=== PATIENT | female | born 1955 | race Caucasian/White ===

== ENCOUNTER 2018-09-07 14:59 | Emergency (ER) | payer BC ==
--- NOTE | 2018-09-07 17:05 | Emergency Department Record ---
History of Present Illness - General Chief complaint: Extremity Problem Stated complaint: RT WRIST PAIN/FALL SKATING Time Seen by Provider: 09/07/18 17:02 Source: Patient Mode of Arrival: Ambulatory Limitations: No limitations - History of Present Illness Initial comments: 63 yo female presents to ED for evaluation of right distal wrist pain and swelling following a fall while roller skating this afternoon with her grand children. Patient reports that she extended her right wrist posteriorly to brace for a fall resulting in injury. Patient denies numbness, tingling, or weakness to the right distal hand, denies health problems at her baseline. MD Complaint: Extremity pain, Extremity swelling Onset/Timin -: Hour(s) Location: Right Radiation: Proximal, Distal Severity scale (1-10): 9 Quality: Aching Improves with: Nothing Worsens with: Other - Related Data Previous Rx's Medication Instructions Recorded Hydrocodone/Acetaminophen [Coy 1 tab PO Q6H PRN #10 tab 09/07/18 5mg/325mg] Allergies Allergy/AdvReac Type Severity Reaction Status Date / Time No Known Drug Allergies Allergy Verified 09/07/18 16:02 Travel Screening - Travel/Exposure Within Last 30 Days Have you traveled within the last 30 days?: No - Travel/Exposure Within Last Year Have you traveled outside the [place] in the last year?: No - Additonal Travel Details Have you been exposed to anyone with a communicable illness?: No - Travel Symptoms Symptom Screening: None Review of Systems Constitutional: Denies: Chills, Fever, Malaise, Night sweats Eyes: Denies: Eye discharge, Eye pain ENT: Denies: Congestion, Ear pain, Epistaxis Respiratory: Denies: Cough, Dyspnea Cardiovascular: Denies: Chest pain, Dyspnea on exertion Endocrine: Denies: Fatigue, Heat or cold intolerance Gastrointestinal: Denies: Abdominal pain, Nausea, Vomiting Genitourinary: Denies: Incontinence, Retention Musculoskeletal: Reports: Arthralgia. Denies: Back pain Skin: Denies: Bruising, Change in color Neurological: Denies: Abnormal gait, Confusion, Headache, Numbness, Tingling, Tremors Psychiatric: Denies: Anxiety Hematological/Lymphatic: Denies: Anemia, Blood Clots Past Medical History - SOCIAL HISTORY Smoking Status: Never smoker Alcohol Use: None Drug Use: None - RESPIRATORY Hx Respiratory Disorders: No - NEURO Hx Neuro Disorders: No - GI Hx GI Disorders: No - Hx Genitourinary Disorders: No - ENDOCRINE Hx Endocrine Disorders: No - MUSCULOSKELETAL Hx Musculoskeletal Disorders: No - PSYCH Hx Psych Problems: No - HEMATOLOGY/ONCOLOGY Hx Hematology/Oncology Disorders: No Family Medical History Any Significant Family History?: No Physical Exam - General General Appearance: Alert, Oriented x3, Cooperative, Moderate distress Limitations: No limitations - Head Head exam: Atraumatic, Normocephalic, Normal inspection Head exam detail: negative: Abrasion, Contusion, Casas's sign, General tenderness, Hematoma, Laceration - Eye Eye exam: Normal appearance. negative: Conjunctival injection, Periorbital swelling, Periorbital tenderness, Scleral icterus - ENT Ear exam: negative: Auricular hematoma, Auricular trauma Nasal Exam: negative: Active bleeding, Discharge, Dried blood, Foreign body Mouth exam: negative: Drooling, Laceration, Muffled voice, Tongue elevation - Neck Neck exam: Normal inspection. negative: Meningismus, Tenderness - Respiratory Respiratory exam: Normal lung sounds bilaterally. negative: Respiratory distress, Rhonchi, Stridor, Wheezes - Cardiovascular Cardiovascular Exam: Regular rate, Normal rhythm, Normal heart sounds - GI/Abdominal GI/Abdominal exam: Soft. negative: Rebound, Rigid, Tenderness - Rectal Rectal exam: Deferred - exam: Deferred - Extremities Extremities exam: Tenderness, Other (TTP to the distal right wrist with STS present, no obvious deformity is present, compartments of the forearm are soft on examination, strong distal radial pulse is present as well. Patient denies pian with movement of the elbow or shoulder. Patient denies other injury on examination.). negative: Calf tenderness, Pedal edema - Back Back exam: Denies: CVA tenderness (R), CVA tenderness (L) - Neurological Neurological exam: Alert, Normal gait, Oriented X3 - Psychiatric Psychiatric exam: Normal affect, Normal mood - Skin Skin exam: Normal color. negative: Abrasion Type of lesion: negative: abrasion Course Vital Signs 09/07/18 15:54 Temperature 98.3 F Pulse Rate 71 Respiratory 16 Rate Blood Pressure 146/113 Pulse Ox 100 - Reevaluation(s) Reevaluation #1: 09/07/18 17:42 Right wrist: Minimally-displaced distal radius fracture without angulation Distal ulna fracture Patient was updated on all results, [facility] Rx for pain as needed Will refer to to Dr. Tracy in the [facility] Specialty clinic for further evaluation in 5-7 days. Disposition Disposition: Discharge Clinical Impression: Distal radius fracture, right Qualifiers: Encounter type: initial encounter Fracture type: closed Fracture morphology: unspecified fracture morphology Qualified Code(s): S52.501A - Unspecified fracture of the lower end of right radius, initial encounter for closed fracture Disposition: Home, Self-Care Condition: (2) Stable Instructions: Wrist Fracture in Adults (ED) Additional Instructions: Return to ED if your symptoms worsen or if you have any concerns. Ibuprofen and Coy as needed for pain. Ice as needed for swelling. Follow-up with Dr. Tracy in the [facility] Specialty clinic in 1 week as directed. Prescriptions: Hydrocodone/Acetaminophen [Coy 5mg/325mg] 1 tab PO Q6H PRN #10 tab PRN Reason: Pain - General Referrals: OLINDA TRACY [DOCTOR OF OSTEOPATH] - [facility] [Provider Group] Forms: Patient Portal Access Time of Disposition: 17:04 Quality - Quality Measures Quality Measures: N/A - Blood Pressure Screening Does Patient Have Any of the Following: No Blood Pressure Classification: Hypertensive Reading Systolic Measurement: 129 Diastolic Measurement: 91 Screening for High Blood Pressure: < First Hypertensive BP, F/U Documented > [ [id number]] First Hypertensive Follow-up Interventions: Referral to alternative/primary care provider.
[2018-09-07] MEDS ORDERED: HYDROCODONE/APAP 5/325MG TABLET PO ONE (17:29)
--- NOTE | 2018-09-07 23:19 | RADIOLOGY REPORT ---
EXAM: FOREARM, RIGHT HISTORY: PAIN. TECHNIQUE: Two views of the right forearm were performed. FINDINGS: There are fracture deformities of the distal right radius and ulna. Minimal volar angulation. IMPRESSION: FRACTURE DEFORMITY OF THE DISTAL RIGHT RADIUS AND ULNA WITH MINIMAL VOLAR ANGULATION. JOB NUMBER: [id number] MTDD
== END 2018-09-07 17:49 | disposition home or self-care (01) ==
LOC: ER 14:59
DX: S52.591A Other fractures of lower end of right radius, initial encounter for closed fracture (principal); S52.041A Displaced fracture of coronoid process of right ulna, initial encounter for closed fracture; W19.XXXA Unspecified fall, initial encounter; Y93.51 Activity, roller skating (inline) and skateboarding
CPT/HCPCS: 99283; 99284

== ENCOUNTER 2019-09-18 09:49 | Day surgery (SDC) | payer BC ==
[2019-09-18] MEDS ORDERED: MIDAZOLAM HCL 2MG/2ML VIAL IV ONE (09:50)
[2019-09-18] MEDS ORDERED: SEVOFLURANE 250 ML INH ONE (09:50)
[2019-09-18] MEDS ORDERED: PROPOFOL 10 MG/ML VIAL IV ONE (09:50)
[2019-09-18] MEDS ORDERED: LIDOCAINE 2% MDV (20MG/ML) 20ML VIAL IV ONE (09:50)
[2019-09-18] MEDS ORDERED: FENTANYL PF 100MCG/2ML VIAL IV ONE (09:50)
[2019-09-18] MEDS ORDERED: KETOROLAC 30 MG/ML VIAL IVP ONE (09:50)
[2019-09-18] MEDS ORDERED: ONDANSETRON HCL IV 4 MG/2 ML VIAL IVP ONE (09:50)
[2019-09-18] MEDS ORDERED: ACETAMINOPHEN 1,000 MG/100 ML BTL IVPB ONE (10:00)
[2019-09-18] MEDS ORDERED: RINGERS SOLUTION,LACTATED 1,000 ML IV ONE (10:20)
--- NOTE | 2019-09-18 13:13 | Operative Note ---
DATE OF SURGERY: 09/18/2019 SURGEON: Jeevan Galeano D.O. REFERRING PHYSICIAN: Rhonda Gamboa D.O. PREOPERATIVE DIAGNOSIS: CARPAL TUNNEL SYNDROME OF THE RIGHT WRIST. POSTOPERATIVE DIAGNOSIS: CARPAL TUNNEL SYNDROME OF THE RIGHT WRIST. OPERATION: DECOMPRESSION RIGHT MEDIAN NERVE OF THE WRIST USING 3.5 LOUPE MAGNIFICATION. DESCRIPTION: This 64-year-old female was taken to the Operating Room and placed in supine position on the operating room table. General anesthesia was induced, the right upper extremity was elevated, prepped with Hibiclens, and draped in the usual sterile fashion. It was exsanguinated and the tourniquet was inflated to 250 mmHg. A palmar incision was utilized following the hypothenar crease from the level of the base of the web space of the thumb to the flexor crease of the wrist and dissection was carried down through the skin and subcutaneous tissue to expose the palmar fascia which was divided in line with the skin incision. A small puncture was made in the flexor retinaculum and it was then split to its proximal margin and with the contents of the carpal tunnel under direct vision the transverse carpal ligament was transected along its ulnar border. The radial flap was raised to expose the entire median nerve under the transverse carpal ligament. The nerve demonstrated marked hyperemia as well as hourglass deformity and the recurrent motor branch of the median nerve was easily identified and found to be in its normal anatomic position. The tourniquet was released, hemostasis obtained with the electrocautery, the wound was irrigate with lactated Ringer's solution and closed with interrupted 6-0 nylon suture in the skin. Sterile dressings were applied with plaster splint immobilization with the wrist in slight dorsiflexion and the thumb in an adducted position. The patient was taken to the Recovery Room in stable condition. JOB NUMBER: [id number] MTDD
== END 2019-09-18 13:15 | disposition home or self-care (01) ==
LOC: SUR 09:49
PROVIDERS: ATTEND Orthopaedic Surgery
DX: G56.01 Carpal tunnel syndrome, right upper limb (principal); I95.9 Hypotension, unspecified
CPT/HCPCS: J1885; J2405; J7120

== ENCOUNTER 2019-11-10 07:51 | Day surgery (SDC) | payer BC ==
[~2019-11-10 07:51] MED LIST: ACETAMINOPHEN 1,000 MG/100 ML BTL IVPB ONE
[2019-11-10] MEDS ORDERED: FENTANYL PF 100MCG/2ML VIAL IV ONE (07:52)
[2019-11-10] MEDS ORDERED: KETOROLAC 30 MG/ML VIAL IVP ONE (07:52)
[2019-11-10] MEDS ORDERED: MIDAZOLAM HCL 2MG/2ML VIAL IV ONE (07:52)
[2019-11-10] MEDS ORDERED: DEXAMETHASONE 4 MG/ML 1ML VIAL IVP ONE (07:52)
[2019-11-10] MEDS ORDERED: PROPOFOL 10 MG/ML VIAL IV ONE (07:52)
[2019-11-10] MEDS ORDERED: LIDOCAINE 2% MDV (20MG/ML) 20ML VIAL IV ONE (07:52)
[2019-11-10] MEDS ORDERED: ONDANSETRON HCL IV 4 MG/2 ML VIAL IVP ONE (07:52)
[2019-11-10] MEDS ORDERED: RINGERS SOLUTION,LACTATED 1,000 ML IV ONE ×2 (08:30→11:05)
--- NOTE | 2019-11-12 07:51 | Operative Note ---
DATE OF SURGERY: 11/10/2019 SURGEON: Jeevan Galeano D.O. REFERRING PHYSICIAN: Sis Gamboa D.O. PREOPERATIVE DIAGNOSIS: CARPAL TUNNEL SYNDROME OF THE LEFT WRIST. POSTOPERATIVE DIAGNOSIS: CARPAL TUNNEL SYNDROME OF THE LEFT WRIST. OPERATION: DECOMPRESSION OF THE LEFT MEDIAN NERVE OF THE WRIST USING 3.5 LOUPE MAGNIFICATION. DESCRIPTION: This 64-year-old female was taken to the Operating Room and placed in the supine position on the operating room table. General anesthesia was induced, the left upper extremity was elevated, it was prepped with Hibiclens and draped in the usual sterile fashion. It was exsanguinated and the tourniquet inflated to 200 mmHg. A palmar incision was utilized following the hypothenar crease from the level of the base of the web space of the thumb to the flexor crease of the wrist. Dissection was carried down through the skin and subcutaneous tissue. The palmar fascia was divided in line with the skin incision. The flexor retinaculum punctured and split to its proximal margin. Then when the contents of the carpal tunnel were under direct vision the transverse carpal ligament was transected along its ulnar border. The radial flap was raised to expose the entire median nerve under the transverse carpal ligament. The recurrent motor branch of the median nerve was easily identified and found to be normal and intact. The wound was irrigated with lactated Ringer's solution and the tourniquet was deflated. Hemostasis was obtained with the electrocautery. The skin was closed with interrupted 6-0 nylon suture, sterile dressings with plaster splint immobilization was applied with wrist in slight dorsiflexion and the thumb in an adducted position. JOB NUMBER: [id number] MTDD
== END 2019-11-10 11:55 | disposition home or self-care (01) ==
LOC: SUR 07:51
PROVIDERS: ATTEND Orthopaedic Surgery
DX: G56.02 Carpal tunnel syndrome, left upper limb (principal)
CPT/HCPCS: 64721; 64727; 01810; J1885; J2405; J3010; J7120